=== PATIENT | female | born 1955 | race Caucasian/White ===

== ENCOUNTER 2021-03-10 23:54 | Inpatient (IN) | payer MEDICARE, MEDICAID ==
[2021-03-11] MEDS ORDERED: Nitroglycerin 0.4 MG TAB 1 EACH ONE (00:14)
[2021-03-11 01:01] LABS: Actual Bicarbonate (HCO3v) 30 mEq/L (22-28); Analyzer IN Cardio ER; Base Excess 4.7 mEq/L (-2.0 to +3.0); Calcium, Ionized (venous) 0.97 mmol/L (1.16-1.32); Chloride (VBG) 91 mmol/L (98-106); Hemoglobin (Hb) 15.1 g/dL (11.7-16.1); Potassium (VBG) 2.17 mmol/L (3.70-5.30); Sodium 130.8 mmol/L (133-146); pH (venous) 7.42 (7.32-7.43)
[2021-03-11] MEDS ORDERED: hydrALAZINE 20 MG/ML VIAL ONE (01:10)
[2021-03-11 01:16] LABS: ALT (SGPT) 14 U/L (8-55); AST (SGOT) 19 U/L (5-34); Albumin 3.2 g/dL (3.4-4.8); Alkaline Phosphatase 88 U/L (40-110); Anion Gap 17 mmol/L (10-20); BUN (Urea Nitrogen) 27 mg/dL (9.8-20.1); Bilirubin, Total 0.3 mg/dL (0.2-1.2); Calc. Creatinine Clearance 0 mL/min (70-130); Calcium 8.2 mg/dL (7.8-10.44); Carbon Dioxide 28 mmol/L (23-31); Chloride 90 mmol/L (98-107); Globulin 3.3 g/dL (2.4-3.5); Glucose 192 mg/dL (80-115); Protein, Total 6.5 g/dL (5.8-8.1); Sodium 133 mmol/L (136-145)
[2021-03-11 01:16] LABS: #Eosinphils 0.1 thou/uL (0.0-0.7); #Lymphocytes 1.1 thou/uL (1.20-3.40); #Monocytes 0.8 thou/uL (0.11-0.59); #Neutrophils 17.4 thou/uL (1.40-6.50); %Basophils 0.1 % (0.0-1.0); %Eosinophils 0.4 % (0.0-10.0); %Lymphocytes 5.8 % (21.0-51.0); %Monocytes 3.9 % (0.0-10.0); %Neutrophils 89.7 % (42.0-75.0); Hemoglobin 14.1 g/dL (12.0-16.0); Mean Corpuscular HGB CONC 33.9 g/dL (32.0-36.0); Mean Corpuscular Hemoglobin 29.7 pg (27.0-31.0); Mean Corpuscular Volume 87.7 fL (78.0-98.0); Mean Platelet Volume 7.6 fL (7.4-10.4); Platelet Count 353 thou/uL (130-400); RBC Distribution Width 13.1 % (11.5-14.5); Red Blood Cell (RBC) Count 4.75 mill/uL (4.20-5.40); White Blood Cell (WBC) Count 19.3 thou/uL (4.8-10.8)
[2021-03-11 01:22] LABS: Potassium 2.3 mmol/L (3.5-5.1)
[2021-03-11] MEDS ORDERED: Potassium Chloride 20 MEQ TAB ONE ×3 (01:30→13:13)
[2021-03-11 01:41] LABS: CKMB 4.8 ng/mL (0-6.6)
[2021-03-11 01:43] LABS: SARS-CoV-2 NAA Rapid Test Not Detected (NotDetected)
[2021-03-11] MEDS ORDERED: Potassium Chloride 40 MEQ in Sodium Chloride 0.9% 250 ML 250 ML IVPB SCH (01:45)
[2021-03-11] MEDS ORDERED: Aspirin Chewable 81 MG TAB ONE (01:47)
[2021-03-11] MEDS ORDERED: niCARdipine 20MG In NaCl 20 MG/200 ML BAG ONE (01:47)
[2021-03-11 01:59] LABS: Magnesium 3.3 mg/dL (1.6-2.6)
[2021-03-11] MEDS ORDERED: Acetaminophen 325 MG TAB PO PRN (03:04)
[2021-03-11 03:43] VITALS: BMI 22.3
[2021-03-11 04:08] LABS: Anion Gap 16 mmol/L (10-20); BUN (Urea Nitrogen) 26 mg/dL (9.8-20.1); Calc. Creatinine Clearance 23 mL/min (70-130); Calcium 8.5 mg/dL (7.8-10.44); Carbon Dioxide 27 mmol/L (23-31); Chloride 90 mmol/L (98-107); Glucose 186 mg/dL (80-115); Sodium 130 mmol/L (136-145)
[2021-03-11 04:12] LABS: Potassium 2.6 mmol/L (3.5-5.1); Troponin I 0.905 ng/mL (< 0.028)
[2021-03-11 04:22] LABS: #Basophils 0.1 thou/uL (0.0-0.2); #Lymphocytes 0.5 thou/uL (1.20-3.40); #Monocytes 0.3 thou/uL (0.11-0.59); #Neutrophils 17.9 thou/uL (1.40-6.50); %Basophils 0.3 % (0.0-1.0); %Eosinophils 0.1 % (0.0-10.0); %Lymphocytes 2.8 % (21.0-51.0); %Monocytes 1.8 % (0.0-10.0); Hemoglobin 14.4 g/dL (12.0-16.0); Mean Corpuscular HGB CONC 34.4 g/dL (32.0-36.0); Mean Corpuscular Volume 87.2 fL (78.0-98.0); Mean Platelet Volume 7.7 fL (7.4-10.4); Platelet Count 356 thou/uL (130-400); Red Blood Cell (RBC) Count 4.79 mill/uL (4.20-5.40); White Blood Cell (WBC) Count 18.8 thou/uL (4.8-10.8)
[2021-03-11] MEDS ORDERED: Potassium Chloride 20 MEQ TAB PO SCH ×2 (04:45→13:30)
[2021-03-11 07:44] LABS: Anion Gap 16 mmol/L (10-20); BUN (Urea Nitrogen) 28 mg/dL (9.8-20.1); Calc. Creatinine Clearance 23 mL/min (70-130); Calcium 8.3 mg/dL (7.8-10.44); Carbon Dioxide 25 mmol/L (23-31); Chloride 95 mmol/L (98-107); Glucose 154 mg/dL (80-115); Sodium 133 mmol/L (136-145)
[2021-03-11 07:45] LABS: Critical Call Chem Troponin I RESULT DECREASING; Troponin I 0.836 ng/mL (< 0.028)
[2021-03-11 07:46] LABS: Potassium 2.8 mmol/L (3.5-5.1)
[2021-03-11] MEDS ORDERED: hydrALAZINE 25 MG TAB ONE (08:31)
[2021-03-11] MEDS ORDERED: Amlodipine 5 MG TAB ONE (08:33)
[2021-03-11] MEDS ORDERED: Famotidine 20 MG TAB ONE (08:33)
[2021-03-11] MEDS: Amlodipine 10 MG TAB PO SCH (08:50)
[2021-03-11] MEDS: Heparin 5,000 UNITS/ML VIAL SC SCH ×3 (08:51→21:39)
[2021-03-11] MEDS: hydrALAZINE 25 MG TAB PO SCH ×2 (08:51→21:40)
[2021-03-11] MEDS: Famotidine 20 MG TAB PO SCH (08:51)
[2021-03-11 11:35] LABS: Bacteria/HPF 3+ HPF (None Seen); Bilirubin Negative (Negative); Blood, Urine Trace (Negative); Clarity Turbid (Clear); Glucose, Urine (Dipstick) Normal (Negative); Ketone, Urine Negative (Negative); Leukocyte 25 Leu/uL (Negative); Nitrite Negative (Negative); Protein, Urine (Dipstick) 300 mg/dL (Neg-Trace); RBC/HPF 0-3 HPF (0-3); Specific Gravity, Urine 1.009 (1.002-1.036); Squamous Epithelial 0-3 HPF (0-3); Urobilinogen Normal mg/dL (Less than 2)
[2021-03-11 12:49] LABS: Anion Gap 14 mmol/L (10-20); BUN (Urea Nitrogen) 29 mg/dL (9.8-20.1); Calc. Creatinine Clearance 24 mL/min (70-130); Calcium 8.6 mg/dL (7.8-10.44); Carbon Dioxide 26 mmol/L (23-31); Chloride 94 mmol/L (98-107); Glucose 153 mg/dL (80-115); Sodium 131 mmol/L (136-145)
[2021-03-11 12:57] LABS: Potassium 2.8 mmol/L (3.5-5.1)
[2021-03-11] MEDS: Sodium Chloride 0.9% 1,000 ML IV SCH (18:08)
[2021-03-11] MEDS: Potassium Chloride 20 MEQ TAB PO SCH (21:40)
[2021-03-11] MEDS ORDERED: Docusate 100 MG CAP PO PRN (21:45)
[2021-03-11 23:53] LABS: Bacteria/HPF 3+ HPF (None Seen); Bilirubin Negative (Negative); Blood, Urine Negative (Negative); Clarity Turbid (Clear); Glucose, Urine (Dipstick) Normal (Negative); Ketone, Urine Negative (Negative); Leukocyte 250 Leu/uL (Negative); Nitrite Negative (Negative); Protein, Urine (Dipstick) 200 mg/dL (Neg-Trace); RBC/HPF 0-3 HPF (0-3); Specific Gravity, Urine 1.007 (1.002-1.036); Urobilinogen Normal mg/dL (Less than 2)
[2021-03-11 23:54] LABS: Urine Culture Reflex No No
[2021-03-12] MEDS: cefTRIAXone\\ROCEPHIN 1 GM in Sodium Chloride 0.9% 100 ML IVPB SCH (00:32)
[2021-03-12 05:21] LABS: Anion Gap 16 mmol/L (10-20); BUN (Urea Nitrogen) 29 mg/dL (9.8-20.1); Calc. Creatinine Clearance 22 mL/min (70-130); Calcium 8.6 mg/dL (7.8-10.44); Carbon Dioxide 23 mmol/L (23-31); Chloride 102 mmol/L (98-107); Glucose 127 mg/dL (80-115); Magnesium 2.6 mg/dL (1.6-2.6); Potassium 3.5 mmol/L (3.5-5.1); Sodium 137 mmol/L (136-145)
[2021-03-12 05:28] LABS: #Lymphocytes 1.3 thou/uL (1.20-3.40); #Monocytes 1.2 thou/uL (0.11-0.59); #Neutrophils 15.9 thou/uL (1.40-6.50); %Basophils 0.1 % (0.0-1.0); %Eosinophils 0.1 % (0.0-10.0); %Lymphocytes 6.8 % (21.0-51.0); %Monocytes 6.7 % (0.0-10.0); %Neutrophils 86.3 % (42.0-75.0); Hemoglobin 12.9 g/dL (12.0-16.0); Mean Corpuscular HGB CONC 33.6 g/dL (32.0-36.0); Mean Corpuscular Hemoglobin 29.8 pg (27.0-31.0); Mean Corpuscular Volume 88.6 fL (78.0-98.0); Mean Platelet Volume 7.4 fL (7.4-10.4); Platelet Count 335 thou/uL (130-400); RBC Distribution Width 13.3 % (11.5-14.5); Red Blood Cell (RBC) Count 4.33 mill/uL (4.20-5.40); White Blood Cell (WBC) Count 18.4 thou/uL (4.8-10.8)
[2021-03-12] MEDS: Labetalol HCl 100 MG/20 ML VIAL SLOW IVP PRN (07:32)
[2021-03-12] MEDS ORDERED: FLU VACC QS2021-22(65YR UP)/PF 240 MCG/0.7 ML SYRINGE IM ONE (09:00)
[2021-03-12] MEDS: Heparin 5,000 UNITS/ML VIAL SC SCH ×3 (09:26→20:24)
[2021-03-12] MEDS: Amlodipine 10 MG TAB PO SCH (09:26)
[2021-03-12] MEDS: Potassium Chloride 20 MEQ TAB PO SCH ×2 (09:26→20:25)
[2021-03-12] MEDS: hydrALAZINE 25 MG TAB PO SCH ×3 (09:26→20:25)
[2021-03-12] MEDS: Famotidine 20 MG TAB PO SCH (09:26)
[2021-03-12] MEDS: Sodium Chloride 0.9% 1,000 ML IV SCH (13:25)
[2021-03-12] MEDS: Metoprolol Tartrate 25 MG TAB PO SCH ×2 (14:17→20:26)
[2021-03-12 16:15] LABS: Creatinine, Urine 36.83 mg/dL (47-110)
[2021-03-13] MEDS: cefTRIAXone\\ROCEPHIN 1 GM in Sodium Chloride 0.9% 100 ML IVPB SCH (01:26)
[2021-03-13] MEDS: Ondansetron PF 4 MG/2 ML Vial IVP PRN ×2 (01:30→22:28)
[2021-03-13] MEDS: Labetalol HCl 100 MG/20 ML VIAL SLOW IVP PRN (03:32)
[2021-03-13 04:50] LABS: #Basophils 0.1 thou/uL (0.0-0.2); #Lymphocytes 2.5 thou/uL (1.20-3.40); #Monocytes 0.9 thou/uL (0.11-0.59); #Neutrophils 8.4 thou/uL (1.40-6.50); %Basophils 0.5 % (0.0-1.0); %Eosinophils 0.4 % (0.0-10.0); %Lymphocytes 20.8 % (21.0-51.0); %Monocytes 7.8 % (0.0-10.0); %Neutrophils 70.5 % (42.0-75.0); Hemoglobin 12.7 g/dL (12.0-16.0); Mean Corpuscular HGB CONC 34.2 g/dL (32.0-36.0); Mean Platelet Volume 7.3 fL (7.4-10.4); Platelet Count 368 thou/uL (130-400); RBC Distribution Width 13.5 % (11.5-14.5); Red Blood Cell (RBC) Count 4.22 mill/uL (4.20-5.40); White Blood Cell (WBC) Count 11.9 thou/uL (4.8-10.8)
[2021-03-13 05:14] LABS: Anion Gap 16 mmol/L (10-20); BUN (Urea Nitrogen) 29 mg/dL (9.8-20.1); Calc. Creatinine Clearance 22 mL/min (70-130); Calcium 8.2 mg/dL (7.8-10.44); Carbon Dioxide 20 mmol/L (23-31); Chloride 105 mmol/L (98-107); Glucose 99 mg/dL (80-115); Magnesium 2.3 mg/dL (1.6-2.6); Potassium 3.9 mmol/L (3.5-5.1); Sodium 137 mmol/L (136-145)
[2021-03-13] MEDS: Potassium Chloride 20 MEQ TAB PO SCH (08:16)
[2021-03-13] MEDS: hydrALAZINE 25 MG TAB PO SCH ×3 (08:17→20:48)
[2021-03-13] MEDS: Metoprolol Tartrate 25 MG TAB PO SCH ×2 (08:17→20:48)
[2021-03-13] MEDS: Famotidine 20 MG TAB PO SCH (08:17)
[2021-03-13] MEDS: Amlodipine 10 MG TAB PO SCH (08:17)
[2021-03-13] MEDS: Heparin 5,000 UNITS/ML VIAL SC SCH ×3 (08:18→20:50)
[2021-03-13] MEDS: Sodium Chloride 0.9% 1,000 ML IV SCH (08:25)
[2021-03-13 17:54] LABS: Bacteria/HPF None Seen HPF (None Seen); Bilirubin Negative (Negative); Blood, Urine Negative (Negative); Clarity Clear (Clear); Glucose, Urine (Dipstick) Normal (Negative); Ketone, Urine Negative (Negative); Leukocyte Negative Leu/uL (Negative); Nitrite Negative (Negative); Protein, Urine (Dipstick) 100 mg/dL (Neg-Trace); RBC/HPF 0-3 HPF (0-3); Urobilinogen Normal mg/dL (Less than 2); WBC/HPF 0-3 HPF (0-3)
[2021-03-13] MEDS: Spironolactone 25 MG TAB PO SCH (18:24)
[2021-03-13 21:29] LABS: HBSAg Index 0.63 S/CO (0-0.99); Hep B Surf Ag Non-Reactive S/CO (NonReactive)
[2021-03-14] MEDS: cefTRIAXone\\ROCEPHIN 1 GM in Sodium Chloride 0.9% 100 ML IVPB SCH (00:42)
[2021-03-14] MEDS: Amlodipine 10 MG TAB PO SCH (08:20)
[2021-03-14] MEDS: Metoprolol Tartrate 25 MG TAB PO SCH ×2 (08:20→20:44)
[2021-03-14] MEDS: Famotidine 20 MG TAB PO SCH (08:20)
[2021-03-14] MEDS: Spironolactone 25 MG TAB PO SCH ×2 (08:20→15:30)
[2021-03-14] MEDS: hydrALAZINE 25 MG TAB PO SCH ×3 (08:20→20:45)
[2021-03-14] MEDS: Heparin 5,000 UNITS/ML VIAL SC SCH ×3 (08:20→20:44)
[2021-03-14 09:02] LABS: #Basophils 0.1 thou/uL (0.0-0.2); #Eosinphils 0.1 thou/uL (0.0-0.7); #Lymphocytes 2.1 thou/uL (1.20-3.40); #Monocytes 0.8 thou/uL (0.11-0.59); #Neutrophils 7.1 thou/uL (1.40-6.50); %Basophils 0.9 % (0.0-1.0); %Eosinophils 0.8 % (0.0-10.0); %Lymphocytes 20.6 % (21.0-51.0); %Neutrophils 69.8 % (42.0-75.0); Mean Corpuscular HGB CONC 33.2 g/dL (32.0-36.0); Mean Corpuscular Hemoglobin 29.3 pg (27.0-31.0); Mean Corpuscular Volume 88.3 fL (78.0-98.0); Mean Platelet Volume 7.3 fL (7.4-10.4); Platelet Count 375 thou/uL (130-400); RBC Distribution Width 13.8 % (11.5-14.5); Red Blood Cell (RBC) Count 4.77 mill/uL (4.20-5.40); White Blood Cell (WBC) Count 10.2 thou/uL (4.8-10.8)
[2021-03-14 09:23] LABS: Anion Gap 13 mmol/L (10-20); BUN (Urea Nitrogen) 31 mg/dL (9.8-20.1); Calc. Creatinine Clearance 22 mL/min (70-130); Calcium 8.5 mg/dL (7.8-10.44); Carbon Dioxide 21 mmol/L (23-31); Chloride 106 mmol/L (98-107); Glucose 99 mg/dL (80-115); Potassium 4.2 mmol/L (3.5-5.1); Sodium 136 mmol/L (136-145)
[2021-03-14 17:01] LABS: ANA Symphony (Qualitative) Negative (Negative); ANA Symphony (Quantitative) 0.2 Ratio (< 0.7 Negative); dsDNA IgG Antibody Less than 0.5 IU/mL (<10 Negative)
[2021-03-14 17:13] LABS: Troponin I 0.135 ng/mL (< 0.028)
[2021-03-14] MEDS: Labetalol HCl 100 MG/20 ML VIAL SLOW IVP PRN ×2 (17:18→20:45)
[2021-03-15] MEDS: cefTRIAXone\\ROCEPHIN 1 GM in Sodium Chloride 0.9% 100 ML IVPB SCH (01:43)
[2021-03-15] MEDS: Labetalol HCl 100 MG/20 ML VIAL SLOW IVP PRN ×2 (04:14→18:30)
[2021-03-15 05:47] LABS: Anion Gap 15 mmol/L (10-20); BUN (Urea Nitrogen) 27 mg/dL (9.8-20.1); Calc. Creatinine Clearance 22 mL/min (70-130); Calcium 8.6 mg/dL (7.8-10.44); Carbon Dioxide 20 mmol/L (23-31); Cardiac Risk 6.6 (Less than 4.5); Chloride 107 mmol/L (98-107); Cholesterol 283 mg/dl (< 200 Desired); Glucose 98 mg/dL (80-115); HDL Cholesterol 43 mg/dL (>60 Neg Risk); Potassium 4.1 mmol/L (3.5-5.1); Sodium 138 mmol/L (136-145)
[2021-03-15 05:59] LABS: LDL Cholesterol, Calculated 198 mg/dL
[2021-03-15 06:21] LABS: Triglycerides 202 mg/dL (Less than 150)
[2021-03-15 10:13] LABS: Kappa Lambda Light Chain Ratio 1.76 (0.26-1.65); Kappa Light Chains 54.8 mg/L (3.3-19.4); Lambda Light Chain 31.1 mg/L (5.7-26.3)
[2021-03-15] MEDS: Spironolactone 25 MG TAB PO SCH ×2 (10:14→18:29)
[2021-03-15] MEDS: Amlodipine 10 MG TAB PO SCH (10:15)
[2021-03-15] MEDS: Heparin 5,000 UNITS/ML VIAL SC SCH ×3 (10:16→20:27)
[2021-03-15] MEDS: Famotidine 20 MG TAB PO SCH (10:16)
[2021-03-15] MEDS: hydrALAZINE 25 MG TAB PO SCH ×3 (10:17→20:27)
[2021-03-15] MEDS: Labetalol 100 MG TAB PO SCH ×2 (10:17→20:28)
[2021-03-15] MEDS ORDERED: Regadenoson 0.4 MG/5 ML SYRINGE ONE (10:26)
[2021-03-15] MEDS: Isosorbide Dinitrate 5 MG TAB PO SCH (20:28)
[2021-03-15 23:12] LABS: A/G Ratio 0.8 (0.7-1.7); Albumin 2.6 g/dL (2.9-4.4); Alpha 1 0.3 g/dL (0.0-0.4); Beta 0.8 g/dL (0.7-1.3); Globulin, Total 3.1 g/dL (2.2-3.9); M-Spike Not Observed g/dL (Not Observed)
[2021-03-16] MEDS: cefTRIAXone\\ROCEPHIN 1 GM in Sodium Chloride 0.9% 100 ML IVPB SCH (01:45)
[2021-03-16] MEDS: Labetalol HCl 100 MG/20 ML VIAL SLOW IVP PRN (04:15)
[2021-03-16 05:55] LABS: Anion Gap 13 mmol/L (10-20); BUN (Urea Nitrogen) 23 mg/dL (9.8-20.1); Calc. Creatinine Clearance 23 mL/min (70-130); Calcium 8.2 mg/dL (7.8-10.44); Carbon Dioxide 21 mmol/L (23-31); Chloride 108 mmol/L (98-107); Glucose 91 mg/dL (80-115); Potassium 3.8 mmol/L (3.5-5.1); Sodium 138 mmol/L (136-145)
[2021-03-16] MEDS: hydrALAZINE 25 MG TAB PO SCH ×4 (09:33→21:42)
[2021-03-16] MEDS: Labetalol 100 MG TAB PO SCH ×2 (09:34→21:45)
[2021-03-16] MEDS: Famotidine 20 MG TAB PO SCH (09:34)
[2021-03-16] MEDS: Amlodipine 10 MG TAB PO SCH (09:35)
[2021-03-16] MEDS: Isosorbide Dinitrate 5 MG TAB PO SCH ×2 (09:36→21:44)
[2021-03-16] MEDS: Spironolactone 25 MG TAB PO SCH ×2 (09:36→16:54)
[2021-03-16 10:38] LABS: Hep B Surface AG-Rflx Sendout Negative (Negative); Hepatitis B Core Total Positive (Negative); Hepatitis B Surface AB-Sendout Reactive (.)
[2021-03-16] MEDS: Heparin 5,000 UNITS/ML VIAL SC SCH ×3 (14:00→21:42)
[2021-03-16 15:12] LABS: Cytoplasmic (C-ANCA) <1:20 titer (Neg:<1:20); Perinuclear (P-ANCA) <1:20 titer (Neg:<1:20)
[2021-03-16 16:11] LABS: #Basophils 0.1 thou/uL (0.0-0.2); #Eosinphils 0.1 thou/uL (0.0-0.7); #Lymphocytes 2.2 thou/uL (1.20-3.40); #Neutrophils 6.5 thou/uL (1.40-6.50); %Basophils 0.8 % (0.0-1.0); %Lymphocytes 22.3 % (21.0-51.0); %Monocytes 10.2 % (0.0-10.0); %Neutrophils 65.7 % (42.0-75.0); Hemoglobin 11.6 g/dL (12.0-16.0); Mean Corpuscular HGB CONC 33.6 g/dL (32.0-36.0); Mean Corpuscular Hemoglobin 29.6 pg (27.0-31.0); Mean Corpuscular Volume 87.9 fL (78.0-98.0); Mean Platelet Volume 7.2 fL (7.4-10.4); Platelet Count 359 thou/uL (130-400); RBC Distribution Width 14.2 % (11.5-14.5); Red Blood Cell (RBC) Count 3.91 mill/uL (4.20-5.40); White Blood Cell (WBC) Count 9.8 thou/uL (4.8-10.8)
[2021-03-16] MEDS: NIFEdipine XL 30 MG TAB PO SCH (21:45)
[2021-03-16] MEDS: Varenicline Tartrate 0.5 MG TAB PO SCH (21:46)
[2021-03-17] MEDS: cefTRIAXone\\ROCEPHIN 1 GM in Sodium Chloride 0.9% 100 ML IVPB SCH (04:56)
[2021-03-17 06:01] LABS: Anion Gap 14 mmol/L (10-20); BUN (Urea Nitrogen) 18 mg/dL (9.8-20.1); Calc. Creatinine Clearance 21 mL/min (70-130); Calcium 8.3 mg/dL (7.8-10.44); Carbon Dioxide 17 mmol/L (23-31); Chloride 109 mmol/L (98-107); Glucose 91 mg/dL (80-115); Potassium 3.7 mmol/L (3.5-5.1); Sodium 136 mmol/L (136-145)
[2021-03-17] MEDS: Labetalol 100 MG TAB PO SCH ×2 (09:26→20:33)
[2021-03-17] MEDS: Spironolactone 25 MG TAB PO SCH ×2 (09:26→18:37)
[2021-03-17] MEDS: Famotidine 20 MG TAB PO SCH (09:27)
[2021-03-17] MEDS: Isosorbide Dinitrate 5 MG TAB PO SCH ×2 (09:27→20:33)
[2021-03-17] MEDS: NIFEdipine XL 30 MG TAB PO SCH (09:28)
[2021-03-17] MEDS: Varenicline Tartrate 0.5 MG TAB PO SCH ×2 (09:28→21:11)
[2021-03-17] MEDS: hydrALAZINE 25 MG TAB PO SCH ×3 (09:28→20:32)
[2021-03-17] MEDS ORDERED: NIFEdipine XL 30 MG TAB PO SCH (12:23)
[2021-03-17] MEDS ORDERED: NIFEdipine XL 60 MG TAB PO SCH (12:30)
[2021-03-17] MEDS: Heparin 5,000 UNITS/ML VIAL SC SCH ×3 (12:43→20:34)
[2021-03-17 18:15] LABS: #Basophils 0.1 thou/uL (0.0-0.2); #Eosinphils 0.1 thou/uL (0.0-0.7); #Lymphocytes 2.1 thou/uL (1.20-3.40); #Neutrophils 6.5 thou/uL (1.40-6.50); %Eosinophils 1.3 % (0.0-10.0); %Lymphocytes 21.2 % (21.0-51.0); %Monocytes 10.3 % (0.0-10.0); %Neutrophils 66.2 % (42.0-75.0); Hemoglobin 12.5 g/dL (12.0-16.0); Mean Corpuscular HGB CONC 33.4 g/dL (32.0-36.0); Mean Corpuscular Volume 89.8 fL (78.0-98.0); Mean Platelet Volume 7.2 fL (7.4-10.4); Platelet Count 331 thou/uL (130-400); RBC Distribution Width 14.5 % (11.5-14.5); Red Blood Cell (RBC) Count 4.17 mill/uL (4.20-5.40); White Blood Cell (WBC) Count 9.7 thou/uL (4.8-10.8)
[2021-03-17] MEDS: NIFEdipine XL 60 MG TAB PO SCH (20:33)
[2021-03-18 05:11] LABS: Metanephrine,Plasma <10.0 pg/mL (0.0-88.0); Normetanephrine,Pl 81.6 pg/mL (0.0-191.8)
[2021-03-18 05:15] LABS: #Basophils 0.1 thou/uL (0.0-0.2); #Eosinphils 0.1 thou/uL (0.0-0.7); #Lymphocytes 1.7 thou/uL (1.20-3.40); #Monocytes 0.9 thou/uL (0.11-0.59); #Neutrophils 5.7 thou/uL (1.40-6.50); %Basophils 1.1 % (0.0-1.0); %Eosinophils 1.6 % (0.0-10.0); %Lymphocytes 19.7 % (21.0-51.0); %Monocytes 10.3 % (0.0-10.0); %Neutrophils 67.4 % (42.0-75.0); Hemoglobin 11.5 g/dL (12.0-16.0); Mean Corpuscular HGB CONC 33.9 g/dL (32.0-36.0); Mean Corpuscular Hemoglobin 30.5 pg (27.0-31.0); Mean Platelet Volume 7.7 fL (7.4-10.4); Platelet Count 335 thou/uL (130-400); RBC Distribution Width 14.6 % (11.5-14.5); Red Blood Cell (RBC) Count 3.78 mill/uL (4.20-5.40); White Blood Cell (WBC) Count 8.5 thou/uL (4.8-10.8)
[2021-03-18 05:41] LABS: Anion Gap 14 mmol/L (10-20); BUN (Urea Nitrogen) 18 mg/dL (9.8-20.1); Calc. Creatinine Clearance 22 mL/min (70-130); Calcium 8.5 mg/dL (7.8-10.44); Carbon Dioxide 18 mmol/L (23-31); Chloride 108 mmol/L (98-107); Glucose 92 mg/dL (80-115); Potassium 3.9 mmol/L (3.5-5.1); Sodium 136 mmol/L (136-145)
[2021-03-18] MEDS: Ondansetron PF 4 MG/2 ML Vial IVP PRN ×2 (06:06→11:25)
[2021-03-18] MEDS: Heparin 5,000 UNITS/ML VIAL SC SCH ×2 (08:26→15:14)
[2021-03-18] MEDS: hydrALAZINE 25 MG TAB PO SCH ×3 (08:26→18:11)
[2021-03-18] MEDS: Labetalol 100 MG TAB PO SCH (08:27)
[2021-03-18] MEDS: Spironolactone 25 MG TAB PO SCH ×2 (08:27→16:38)
[2021-03-18] MEDS: Famotidine 20 MG TAB PO SCH (08:27)
[2021-03-18] MEDS: NIFEdipine XL 60 MG TAB PO SCH (08:28)
[2021-03-18] MEDS: Isosorbide Dinitrate 5 MG TAB PO SCH (08:28)
[2021-03-18] MEDS: Varenicline Tartrate 0.5 MG TAB PO SCH (08:48)
[2021-03-18 11:52] LABS: SARS-CoV-2 PCR by NAA Not Detected (NotDetected)
[2021-03-18] MEDS ORDERED: Sodium Bicarbonate Tab 325 MG TAB PO SCH (15:00)
[2021-03-18 16:32] VITALS: TEMP 98.4
[2021-03-18 17:37] LABS: Aldosterone,TM 2.06 ug/24 hr (0.00-19.00); Aldosterone- Urine 3.17 ug/L (Not Estab.)
[2021-03-18 18:12] VITALS: BP 160/75
[2021-03-23 14:14] LABS: Renin Activity 3.903 ng/mL/hr (0.167-5.380)
== END 2021-03-18 18:22 | disposition home or self-care (01) | DRG 682 ==
LOC: ERS 23:54 → 2NO 03-11 02:00 → ERHOLD 03-11 02:11 → 2NO 03-11 14:18
PROVIDERS: ADMIT Internal Medicine; ATTEND Internal Medicine
DX: N17.9 Acute kidney failure, unspecified (principal); Z20.822 Contact with and (suspected) exposure to COVID-19; J96.01 Acute respiratory failure with hypoxia; I50.23 Acute on chronic systolic (congestive) heart failure; N30.00 Acute cystitis without hematuria; I24.8 Other forms of acute ischemic heart disease; I16.1 Hypertensive emergency; E87.1 Hypo-osmolality and hyponatremia; I13.0 Hypertensive heart and chronic kidney disease with heart failure and stage 1 through stage 4 chronic kidney disease, or unspecified chronic kidney disease; E87.6 Hypokalemia; N13.6 Pyonephrosis; F17.210 Nicotine dependence, cigarettes, uncomplicated; N18.4 Chronic kidney disease, stage 4 (severe); I08.3 Combined rheumatic disorders of mitral, aortic and tricuspid valves; R35.0 Frequency of micturition; E11.22 Type 2 diabetes mellitus with diabetic chronic kidney disease; Z82.49 Family history of ischemic heart disease and other diseases of the circulatory system; Z90.710 Acquired absence of both cervix and uterus; Z88.2 Allergy status to sulfonamides; Z91.19 Patient's noncompliance with other medical treatment and regimen
CPT/HCPCS: 36415; 71045; 74176; 76770; 78452; 80048; 80053; 80061; 81001; 81003; 81015; 82088; 82533; 82553; 82570; 82805; 83735; 83835; 83880; 83883; 84156; 84165; 84244; 84443; 84484; 85025; 85379; 86038; 86160; 86225; 86256; 86335; 86704; 86705; 86706; 86707; 87086; 87340; 87350; 93005; 93017; 93306; 93880; 93975; 96365; 96366; 96375; A9500; J0360; J0696; J1644; J2405; J2785; J3480; J3490; J7050; U0002; U0003; U0005

== ENCOUNTER 2021-03-19 16:42 | Inpatient (IN) | payer MEDICARE, MEDICAID ==
[~2021-03-19 16:42] MED LIST: Iopamidol 370 76% 100 ML VIAL ONE
[2021-03-19 17:53] LABS: #Lymphocytes 1.3 thou/uL (1.20-3.40); #Monocytes 1.2 thou/uL (0.11-0.59); #Neutrophils 8.7 thou/uL (1.40-6.50); %Basophils 0.4 % (0.0-1.0); %Eosinophils 0.3 % (0.0-10.0); %Lymphocytes 11.9 % (21.0-51.0); %Monocytes 10.2 % (0.0-10.0); %Neutrophils 77.1 % (42.0-75.0); Hemoglobin 12.6 g/dL (12.0-16.0); Mean Corpuscular HGB CONC 34.1 g/dL (32.0-36.0); Mean Corpuscular Hemoglobin 30.2 pg (27.0-31.0); Mean Corpuscular Volume 88.7 fL (78.0-98.0); Mean Platelet Volume 7.1 fL (7.4-10.4); Platelet Count 379 thou/uL (130-400); RBC Distribution Width 14.7 % (11.5-14.5); Red Blood Cell (RBC) Count 4.16 mill/uL (4.20-5.40); White Blood Cell (WBC) Count 11.2 thou/uL (4.8-10.8)
[2021-03-19 18:31] LABS: ALT (SGPT) 58 U/L (8-55); AST (SGOT) 42 U/L (5-34); Albumin 3.7 g/dL (3.4-4.8); Alkaline Phosphatase 91 U/L (40-110); Anion Gap 18 mmol/L (10-20); BUN (Urea Nitrogen) 14 mg/dL (9.8-20.1); Bilirubin, Total 0.3 mg/dL (0.2-1.2); Calc. Creatinine Clearance 0 mL/min (70-130); Calcium 8.9 mg/dL (7.8-10.44); Carbon Dioxide 17 mmol/L (23-31); Chloride 104 mmol/L (98-107); Globulin 3.2 g/dL (2.4-3.5); Glucose 105 mg/dL (80-115); Lipase 117 U/L (8-78); Potassium 3.9 mmol/L (3.5-5.1); Protein, Total 6.9 g/dL (5.8-8.1); Sodium 135 mmol/L (136-145)
[2021-03-19 18:49] LABS: CKMB 4.2 ng/mL (0-6.6)
[2021-03-19] MEDS ORDERED: Lorazepam 2 MG/ML VIAL ONE (19:28)
[2021-03-19] MEDS ORDERED: cefTRIAXone\\ROCEPHIN 1 GM VIAL ONE (22:13)
[2021-03-19] MEDS ORDERED: Azithromycin 500 MG VIAL ONE (22:13)
[2021-03-19] MEDS ORDERED: Lorazepam 2 MG/ML VIAL SLOW IVP PRN (22:27)
[2021-03-19] MEDS ORDERED: Electrolyte Replacement Protocol 1 EACH FS SCH (22:30)
[2021-03-19] MEDS ORDERED: Senokot S 8.6-50 MG TAB PO PRN (22:41)
[2021-03-19] MEDS ORDERED: Ondansetron PF 4 MG/2 ML Vial IVP PRN (22:41)
[2021-03-19] MEDS ORDERED: HYDROcodone/Acetaminophen 7.5/325 mg Tablet PO PRN (22:41)
[2021-03-19] MEDS ORDERED: Acetaminophen 325 MG TAB PO PRN (22:41)
[2021-03-19] MEDS ORDERED: HYDROcodone/Acetaminophen 5/325 mg Tablet PO PRN (22:41)
[2021-03-19] MEDS ORDERED: Bisacodyl 5 MG TAB PO PRN (22:41)
[2021-03-19] MEDS ORDERED: Enoxaparin Sodium 30 MG/0.3 ML SYRINGE SC SCH (23:00)
[2021-03-19 23:52] LABS: #Basophils 0.1 thou/uL (0.0-0.2); #Eosinphils 0.1 thou/uL (0.0-0.7); #Lymphocytes 1.7 thou/uL (1.20-3.40); #Monocytes 1.3 thou/uL (0.11-0.59); #Neutrophils 9.4 thou/uL (1.40-6.50); %Basophils 0.7 % (0.0-1.0); %Eosinophils 0.7 % (0.0-10.0); %Lymphocytes 13.4 % (21.0-51.0); %Monocytes 10.5 % (0.0-10.0); %Neutrophils 74.7 % (42.0-75.0); Mean Corpuscular Hemoglobin 29.6 pg (27.0-31.0); Mean Corpuscular Volume 89.8 fL (78.0-98.0); Mean Platelet Volume 6.8 fL (7.4-10.4); Platelet Count 370 thou/uL (130-400); RBC Distribution Width 14.9 % (11.5-14.5); Red Blood Cell (RBC) Count 4.04 mill/uL (4.20-5.40); White Blood Cell (WBC) Count 12.6 thou/uL (4.8-10.8)
[2021-03-20 00:11] VITALS: BMI 21.6
[2021-03-20 00:12] LABS: Magnesium 2.1 mg/dL (1.6-2.6); Phosphorus 4.4 mg/dL (2.3-4.7)
[2021-03-20] MEDS: Nicotine 14 MG PATCH TD SCH ×2 (00:27→23:44)
[2021-03-20] MEDS: Lorazepam 1 MG TAB PO SCH ×4 (00:29→18:17)
[2021-03-20] MEDS: Thiamine HCl 200 MG/2 ML VIAL SLOW IVP SCH ×2 (00:51→23:46)
[2021-03-20 03:43] LABS: Syphilis Antibody Nonreactive (Nonreactive); Syphilis Antibody Index 0.07 S/CO (<1.00 Non-Reactive)
[2021-03-20 04:18] LABS: #Basophils 0.1 thou/uL (0.0-0.2); #Lymphocytes 1.8 thou/uL (1.20-3.40); #Neutrophils 8.1 thou/uL (1.40-6.50); %Basophils 0.6 % (0.0-1.0); %Eosinophils 0.4 % (0.0-10.0); %Lymphocytes 15.9 % (21.0-51.0); %Monocytes 9.4 % (0.0-10.0); %Neutrophils 73.6 % (42.0-75.0); Hemoglobin 11.6 g/dL (12.0-16.0); Mean Corpuscular HGB CONC 32.6 g/dL (32.0-36.0); Mean Corpuscular Hemoglobin 29.2 pg (27.0-31.0); Mean Corpuscular Volume 89.6 fL (78.0-98.0); Mean Platelet Volume 6.7 fL (7.4-10.4); Platelet Count 377 thou/uL (130-400); RBC Distribution Width 14.8 % (11.5-14.5); Red Blood Cell (RBC) Count 3.98 mill/uL (4.20-5.40)
[2021-03-20 04:34] LABS: Amphetamine Not Detected (NotDetected); Barbiturates Screen Not Detected (NotDetected); Benzodiazepine Screen Not Detected (NotDetected); Cocaine Metabolite Screen Not Detected (NotDetected); Methadone Not Detected (NotDetected); Methamphetamine Not Detected (NotDetected); Opiate Screen Not Detected (NotDetected); Oxycodone Screen Not Detected (NotDetected); Phencyclidine (PCP) Not Detected (NotDetected); THC/Cannabinoid Screen Not Detected (NotDetected); Tricyclic Screen Not Detected (NotDetected)
[2021-03-20 04:34] LABS: Lactic Acid 0.9 mmol/L (0.5-2.2)
[2021-03-20 04:43] LABS: Troponin I 0.065 ng/mL (< 0.028)
[2021-03-20 04:46] LABS: ALT (SGPT) 60 U/L (8-55); AST (SGOT) 44 U/L (5-34); Albumin 3.4 g/dL (3.4-4.8); Alkaline Phosphatase 86 U/L (40-110); Anion Gap 15 mmol/L (10-20); BUN (Urea Nitrogen) 15 mg/dL (9.8-20.1); Bilirubin, Total 0.3 mg/dL (0.2-1.2); Calc. Creatinine Clearance 22 mL/min (70-130); Calcium 8.7 mg/dL (7.8-10.44); Carbon Dioxide 19 mmol/L (23-31); Chloride 105 mmol/L (98-107); Globulin 3.1 g/dL (2.4-3.5); Glucose 90 mg/dL (80-115); Potassium 3.8 mmol/L (3.5-5.1); Protein, Total 6.5 g/dL (5.8-8.1); Sodium 135 mmol/L (136-145)
[2021-03-20] MEDS: Folic Acid 1 MG TAB PO SCH (09:14)
[2021-03-20] MEDS: Famotidine/PF 20 mg/2ml Vial SLOW IVP SCH ×2 (09:14→09:27)
[2021-03-20] MEDS: Multivit, Therapeutic 1 TAB PO SCH (09:14)
[2021-03-20] MEDS: Enoxaparin Sodium 30 MG/0.3 ML SYRINGE SC SCH (09:14)
[2021-03-20] MEDS: hydrALAZINE 25 MG TAB PO SCH ×2 (18:18→20:09)
[2021-03-20] MEDS: Sodium Bicarbonate Tab 325 MG TAB PO SCH ×2 (18:18→20:07)
[2021-03-20] MEDS ORDERED: cefTRIAXone\\ROCEPHIN 2 GM in Sodium Chloride 0.9% 100 ML IVPB SCH (20:00)
[2021-03-20] MEDS: Isosorbide Dinitrate 5 MG TAB PO SCH (20:08)
[2021-03-20] MEDS: NIFEdipine XL 60 MG TAB PO SCH (20:08)
[2021-03-20] MEDS: Spironolactone 25 MG TAB PO SCH (20:13)
[2021-03-20] MEDS ORDERED: Azithromycin 500 MG in Sodium Chloride 0.9% 250 ML 250 ML IVPB SCH (22:00)
[2021-03-20] MEDS ORDERED: Lorazepam 1 MG TAB PO PRN (22:28)
[2021-03-21] MEDS: Lorazepam 1 MG TAB PO SCH ×4 (00:44→17:26)
[2021-03-21 08:02] LABS: #Basophils 0.1 thou/uL (0.0-0.2); #Eosinphils 0.1 thou/uL (0.0-0.7); #Lymphocytes 1.4 thou/uL (1.20-3.40); #Monocytes 0.9 thou/uL (0.11-0.59); #Neutrophils 5.7 thou/uL (1.40-6.50); %Basophils 0.9 % (0.0-1.0); %Eosinophils 1.2 % (0.0-10.0); %Lymphocytes 17.5 % (21.0-51.0); %Monocytes 10.5 % (0.0-10.0); %Neutrophils 69.9 % (42.0-75.0); Mean Corpuscular HGB CONC 33.7 g/dL (32.0-36.0); Mean Corpuscular Hemoglobin 30.1 pg (27.0-31.0); Mean Corpuscular Volume 89.2 fL (78.0-98.0); Mean Platelet Volume 7.2 fL (7.4-10.4); Platelet Count 379 thou/uL (130-400); RBC Distribution Width 14.9 % (11.5-14.5); Red Blood Cell (RBC) Count 3.99 mill/uL (4.20-5.40); White Blood Cell (WBC) Count 8.2 thou/uL (4.8-10.8)
[2021-03-21 08:19] LABS: Anion Gap 14 mmol/L (10-20); BUN (Urea Nitrogen) 13 mg/dL (9.8-20.1); Calc. Creatinine Clearance 26 mL/min (70-130); Calcium 8.7 mg/dL (7.8-10.44); Carbon Dioxide 20 mmol/L (23-31); Chloride 106 mmol/L (98-107); Glucose 73 mg/dL (80-115); Potassium 3.7 mmol/L (3.5-5.1); Sodium 136 mmol/L (136-145)
[2021-03-21] MEDS: Enoxaparin Sodium 30 MG/0.3 ML SYRINGE SC SCH (10:21)
[2021-03-21] MEDS: Sodium Bicarbonate Tab 325 MG TAB PO SCH ×3 (10:22→22:06)
[2021-03-21] MEDS: Isosorbide Dinitrate 5 MG TAB PO SCH ×2 (10:22→22:06)
[2021-03-21] MEDS: hydrALAZINE 25 MG TAB PO SCH ×3 (10:22→22:07)
[2021-03-21] MEDS: Multivit, Therapeutic 1 TAB PO SCH (10:23)
[2021-03-21] MEDS: Spironolactone 25 MG TAB PO SCH ×2 (10:23→22:06)
[2021-03-21] MEDS: Folic Acid 1 MG TAB PO SCH (10:23)
[2021-03-21] MEDS: Famotidine/PF 20 mg/2ml Vial SLOW IVP SCH (10:23)
[2021-03-21] MEDS: NIFEdipine XL 60 MG TAB PO SCH ×2 (10:23→22:07)
[2021-03-21] MEDS ORDERED: Labetalol 100 MG TAB PO SCH (11:30)
[2021-03-21] MEDS ORDERED: Saccharomyces boulardii 250 MG CAP PO SCH (14:15)
[2021-03-21] MEDS: Furosemide 20 MG/2 ML VIAL SLOW IVP SCH (15:09)
[2021-03-21] MEDS: Labetalol 100 MG TAB PO SCH (22:06)
[2021-03-21] MEDS: Nicotine 14 MG PATCH TD SCH (22:07)
[2021-03-21] MEDS ORDERED: Lorazepam 1 MG TAB PO PRN (22:28)
[2021-03-21] MEDS ORDERED: Thiamine 100 MG TAB PO SCH (23:00)
[2021-03-22] MEDS: Lorazepam 0.5 MG TAB PO SCH ×4 (01:20→16:28)
[2021-03-22] MEDS: Thiamine HCl 200 MG/2 ML VIAL SLOW IVP SCH (01:20)
[2021-03-22 05:52] LABS: Anion Gap 17 mmol/L (10-20); BUN (Urea Nitrogen) 13 mg/dL (9.8-20.1); Calc. Creatinine Clearance 24 mL/min (70-130); Calcium 8.6 mg/dL (7.8-10.44); Carbon Dioxide 18 mmol/L (23-31); Chloride 105 mmol/L (98-107); Glucose 80 mg/dL (80-115); Potassium 4.6 mmol/L (3.5-5.1); Sodium 135 mmol/L (136-145)
[2021-03-22] MEDS: Furosemide 20 MG/2 ML VIAL SLOW IVP SCH ×2 (06:22→16:30)
[2021-03-22 07:17] LABS: #Eosinphils 0.2 thou/uL (0.0-0.7); #Lymphocytes 1.3 thou/uL (1.20-3.40); #Monocytes 0.8 thou/uL (0.11-0.59); #Neutrophils 6.3 thou/uL (1.40-6.50); %Basophils 0.5 % (0.0-1.0); %Eosinophils 2.1 % (0.0-10.0); %Lymphocytes 15.3 % (21.0-51.0); %Monocytes 9.6 % (0.0-10.0); %Neutrophils 72.5 % (42.0-75.0); Hemoglobin 11.7 g/dL (12.0-16.0); Mean Corpuscular Hemoglobin 29.3 pg (27.0-31.0); Mean Corpuscular Volume 88.8 fL (78.0-98.0); Mean Platelet Volume 7.1 fL (7.4-10.4); Platelet Count 403 thou/uL (130-400); RBC Distribution Width 14.9 % (11.5-14.5); Red Blood Cell (RBC) Count 4.01 mill/uL (4.20-5.40); White Blood Cell (WBC) Count 8.7 thou/uL (4.8-10.8)
[2021-03-22] MEDS: Labetalol 100 MG TAB PO SCH ×2 (10:19→21:39)
[2021-03-22] MEDS: Enoxaparin Sodium 30 MG/0.3 ML SYRINGE SC SCH (13:23)
[2021-03-22] MEDS: Sodium Bicarbonate Tab 325 MG TAB PO SCH ×3 (13:24→21:40)
[2021-03-22] MEDS: NIFEdipine XL 60 MG TAB PO SCH ×2 (13:24→21:39)
[2021-03-22] MEDS: Saccharomyces boulardii 250 MG CAP PO SCH (13:26)
[2021-03-22] MEDS: Spironolactone 25 MG TAB PO SCH ×2 (13:26→21:40)
[2021-03-22] MEDS: Famotidine/PF 20 mg/2ml Vial SLOW IVP SCH (13:27)
[2021-03-22] MEDS: Folic Acid 1 MG TAB PO SCH (13:27)
[2021-03-22] MEDS: Multivit, Therapeutic 1 TAB PO SCH (13:28)
[2021-03-22] MEDS: hydrALAZINE 25 MG TAB PO SCH ×3 (13:28→21:38)
[2021-03-22] MEDS: Thiamine 100 MG TAB PO SCH ×2 (13:28→16:29)
[2021-03-22] MEDS: Isosorbide Dinitrate 5 MG TAB PO SCH ×2 (13:28→21:39)
[2021-03-22] MEDS ORDERED: Lorazepam 0.5 MG TAB PO PRN (22:28)
[2021-03-22] MEDS: Nicotine 14 MG PATCH TD SCH (23:27)
[2021-03-23 05:26] LABS: #Basophils 0.1 thou/uL (0.0-0.2); #Eosinphils 0.1 thou/uL (0.0-0.7); #Lymphocytes 1.3 thou/uL (1.20-3.40); #Monocytes 0.9 thou/uL (0.11-0.59); #Neutrophils 5.6 thou/uL (1.40-6.50); %Basophils 0.8 % (0.0-1.0); %Eosinophils 1.1 % (0.0-10.0); %Lymphocytes 15.9 % (21.0-51.0); %Monocytes 11.3 % (0.0-10.0); Hemoglobin 11.9 g/dL (12.0-16.0); Mean Corpuscular HGB CONC 32.1 g/dL (32.0-36.0); Mean Corpuscular Hemoglobin 28.8 pg (27.0-31.0); Mean Corpuscular Volume 89.9 fL (78.0-98.0); Platelet Count 400 thou/uL (130-400); RBC Distribution Width 14.9 % (11.5-14.5); Red Blood Cell (RBC) Count 4.14 mill/uL (4.20-5.40); White Blood Cell (WBC) Count 7.9 thou/uL (4.8-10.8)
[2021-03-23] MEDS: Furosemide 20 MG/2 ML VIAL SLOW IVP SCH (05:54)
[2021-03-23 05:58] LABS: Anion Gap 15 mmol/L (10-20); BUN (Urea Nitrogen) 15 mg/dL (9.8-20.1); Calc. Creatinine Clearance 21 mL/min (70-130); Calcium 8.8 mg/dL (7.8-10.44); Carbon Dioxide 23 mmol/L (23-31); Chloride 103 mmol/L (98-107); Glucose 82 mg/dL (80-115); Potassium 3.7 mmol/L (3.5-5.1); Sodium 137 mmol/L (136-145)
[2021-03-23] MEDS: Famotidine/PF 20 mg/2ml Vial SLOW IVP SCH (10:22)
[2021-03-23] MEDS: Enoxaparin Sodium 30 MG/0.3 ML SYRINGE SC SCH (10:22)
[2021-03-23] MEDS: Folic Acid 1 MG TAB PO SCH (10:22)
[2021-03-23] MEDS: Labetalol 100 MG TAB PO SCH ×2 (10:23→21:11)
[2021-03-23] MEDS: NIFEdipine XL 60 MG TAB PO SCH ×2 (10:23→21:12)
[2021-03-23] MEDS: Isosorbide Dinitrate 5 MG TAB PO SCH ×2 (10:23→21:11)
[2021-03-23] MEDS: hydrALAZINE 25 MG TAB PO SCH ×3 (10:23→21:11)
[2021-03-23] MEDS: Saccharomyces boulardii 250 MG CAP PO SCH (10:23)
[2021-03-23] MEDS: Multivit, Therapeutic 1 TAB PO SCH (10:23)
[2021-03-23] MEDS: Spironolactone 25 MG TAB PO SCH ×2 (10:23→21:12)
[2021-03-23] MEDS: Sodium Bicarbonate Tab 325 MG TAB PO SCH ×3 (10:23→21:12)
[2021-03-23] MEDS ORDERED: Meclizine HCl 25 MG TAB PO SCH (11:00)
[2021-03-23] MEDS: Meclizine HCl 25 MG TAB PO SCH ×2 (16:55→23:07)
[2021-03-23] MEDS: Nicotine 14 MG PATCH TD SCH (23:07)
[2021-03-24 05:02] LABS: Anion Gap 14 mmol/L (10-20); BUN (Urea Nitrogen) 14 mg/dL (9.8-20.1); Calc. Creatinine Clearance 19 mL/min (70-130); Calcium 8.7 mg/dL (7.8-10.44); Carbon Dioxide 21 mmol/L (23-31); Chloride 103 mmol/L (98-107); Glucose 87 mg/dL (80-115); Potassium 3.6 mmol/L (3.5-5.1); Sodium 134 mmol/L (136-145)
[2021-03-24] MEDS: Meclizine HCl 25 MG TAB PO SCH (05:32)
[2021-03-24] MEDS ORDERED: Carvedilol 25 MG TAB PO SCH (08:00)
[2021-03-24] MEDS: Isosorbide Dinitrate 5 MG TAB PO SCH (09:44)
[2021-03-24] MEDS: Folic Acid 1 MG TAB PO SCH (09:44)
[2021-03-24] MEDS: NIFEdipine XL 60 MG TAB PO SCH (09:44)
[2021-03-24] MEDS: hydrALAZINE 25 MG TAB PO SCH (09:44)
[2021-03-24] MEDS: Enoxaparin Sodium 30 MG/0.3 ML SYRINGE SC SCH (09:44)
[2021-03-24] MEDS: Multivit, Therapeutic 1 TAB PO SCH (09:44)
[2021-03-24] MEDS: Famotidine/PF 20 mg/2ml Vial SLOW IVP SCH (09:44)
[2021-03-24] MEDS: Saccharomyces boulardii 250 MG CAP PO SCH (09:45)
[2021-03-24] MEDS: Sodium Bicarbonate Tab 325 MG TAB PO SCH (09:45)
[2021-03-24] MEDS: Spironolactone 25 MG TAB PO SCH (09:45)
[2021-03-24] MEDS: Thiamine 100 MG TAB PO SCH (09:45)
[2021-03-24 11:08] VITALS: BP 142/67; TEMP 98
== END 2021-03-24 11:47 | disposition home or self-care (01) | DRG 291 ==
LOC: ERS 16:42 → 2NO 21:18
PROVIDERS: ADMIT Student in an Organized Health Care Education/Training Program; ATTEND Internal Medicine
DX: I13.0 Hypertensive heart and chronic kidney disease with heart failure and stage 1 through stage 4 chronic kidney disease, or unspecified chronic kidney disease (principal); I50.23 Acute on chronic systolic (congestive) heart failure; N18.4 Chronic kidney disease, stage 4 (severe); N17.9 Acute kidney failure, unspecified; F17.210 Nicotine dependence, cigarettes, uncomplicated; Z23 Encounter for immunization; Z20.822 Contact with and (suspected) exposure to COVID-19; K76.1 Chronic passive congestion of liver; F10.10 Alcohol abuse, uncomplicated; Z88.2 Allergy status to sulfonamides; Z90.710 Acquired absence of both cervix and uterus; Z79.899 Other long term (current) drug therapy
CPT/HCPCS: 36415; 36416; 71045; 71275; 80048; 80053; 80306; 82553; 83605; 83690; 83735; 83880; 84100; 84484; 85025; 85379; 86780; 90471; 90732; 93005; 93010; 96365; 96367; 96375; G0009; J0456; J0696; J1650; J1940; J2060; J3411; J3490; J7050; Q9967; S0028